=== PATIENT | female | born 1930 | race Caucasian/White ===

== ENCOUNTER 2017-06-14 19:57 | Inpatient (IN) | payer MEDICARE, MEDICAID ==
[2017-06-14] MEDS ORDERED: Sodium Chloride 0.9% 1,000 ML IV SCH (20:30)
[2017-06-14] MEDS: Sodium Chloride 0.9% 10 ML Syringe FLUSH PRN ×2 (21:14→21:57)
--- NOTE | 2017-06-14 21:27 | EDM.PDOC ---
ED HPI GENERAL MEDICAL PROBLEM - General Chief Complaint: Gastrointestinal Problem Stated Complaint: [facility] Time Seen by Provider: 06/14/17 20:09 Source of Information: Reports: Family, Old Records History Limitations: Reports: Altered Mental Status - History of Present Illness INITIAL COMMENTS - FREE TEXT/NARRATIVE: The patient presents from [facility] with blood in her stool. She had a problem with this 2 years ago and recently she has been having some dark stools and she was constipated. She was given some stool softener and a suppository a few days ago and she did have some loose stools. She did have blood in her stool tonight. She has no pain any where. She has no fever, cough, chest pain or abdominal pain. She is not vomiting. She is eating okay. The patient has dementia and she does not answer many questions but she will follow commands. Onset: Sudden Duration: Minutes: Location: Reports: Other (Bloody stool) Severity: Moderate Improves with: Reports: None Worsens with: Reports: None Associated Symptoms: Reports: No Other Symptoms - Related Data Allergies Allergy/AdvReac Type Severity Reaction Status Date / Time diphenhydramine HCl Allergy Cannot Verified 04/08/15 19:07 [From Benadryl] Remember Home Meds: Home Meds Acetaminophen [Tylenol] 2 tab PO TID 04/08/15 [History] Acetaminophen [Tylenol] 650 mg PO Q8HR PRN 04/08/15 [History] Allopurinol [Zyloprim] 100 mg PO DAILY 04/08/15 [History] Diltiazem HCl [Cardizem Cd] 120 mg PO DAILY 04/08/15 [History] Fishermans Friend Cough Drop 0.5 tab PO DAILY 04/08/15 [History] Furosemide [Lasix] 20 mg PO DAILY 04/08/15 [History] Lactose-Reduced Food [Boost] 2 oz PO BID 04/08/15 [History] Losartan [Cozaar] 25 mg PO DAILY 04/08/15 [History] Metoprolol Tartrate [Lopressor] 25 mg PO BID 04/08/15 [History] Multivit-Min/FA/Lycopene/Lut [Certavite Sr-Antioxidant Tab] 1 tab PO DAILY 04/07 [History] Potassium Chloride [Klor-Con] 20 meq PO DAILY 04/08/15 [History] Spironolactone [Aldactone] 12.5 mg PO DAILY 04/08/15 [History] atorvaSTATin [Lipitor] 20 mg PO DAILY 04/08/15 [History] Ascorbic Acid [Vitamin C] 500 mg PO DAILY 06/14/17 [History] Aspirin [Ecotrin] 81 mg PO DAILY 06/14/17 [History] Barrier Cream 1 applic TOP BID 06/14/17 [History] Bisacodyl [Dulcolax] 10 mg RC ASDIRECTED PRN 06/14/17 [History] Ferrous Sulfate 325 mg PO DAILY 06/14/17 [History] Lactose-Reduced Food [Boost] 120 ml PO ASDIRECTED 06/14/17 [History] Loperamide HCl [Imodium A-D] 2 mg PO ASDIRECTED PRN 06/14/17 [History] Megestrol [Megace] 20 mg PO DAILY 06/14/17 [History] guaiFENesin [Mucinex] 600 mg PO BID 06/14/17 [History] Past Medical History HEENT History: Reports: Hard of Hearing Other HEENT History: no hearing aides upon arrival;no glasses on arrival Cardiovascular History: Reports: Afib, CAD, Heart Failure, Hypertension Respiratory History: Reports: COPD Gastrointestinal History: Reports: Other (See Below) Other Gastrointestinal History: volvulus Genitourinary History: Reports: Other (See Below) Other Genitourinary History: pt incontinent of urine normally Musculoskeletal History: Reports: Gout, Osteoporosis Neurological History: Reports: Alzheimers Disease Psychiatric History: Reports: Alzheimers Disease, Dementia, Depression Oncologic (Cancer) History: Reports: Breast - Infectious Disease History Infectious Disease History: Reports: MRSA - Past Surgical History Female Surgical History: Reports: Breast Biopsy Social & Family History - Family History Family Medical History: Noncontributory - Tobacco Use Smoking Status *Q: Unknown Ever Smoked - Living Situation & Occupation Living situation: Reports: Extended Care Facility Occupation: Retired ED ROS GENERAL - Review of Systems Review Of Systems: See Below Constitutional: Reports: No Symptoms HEENT: Reports: No Symptoms Respiratory: Reports: No Symptoms Cardiovascular: Reports: No Symptoms Endocrine: Reports: No Symptoms GI/Abdominal: Reports: Bloody Stool. Denies: Abdominal Pain, Nausea, Vomiting : Reports: No Symptoms Musculoskeletal: Reports: No Symptoms Skin: Reports: No Symptoms Neurological: Reports: Confusion ED EXAM, GI/ABD - Physical Exam Exam: See Below Exam Limited By: Altered Mental Status (confused) General Appearance: Alert, No Apparent Distress Ears: Normal External Exam Nose: Normal Inspection Throat/Mouth: Normal Inspection Head: Atraumatic, Normocephalic Neck: Normal Inspection Respiratory/Chest: No Respiratory Distress, Lungs Clear, Normal Breath Sounds Cardiovascular: Regular Rate, Rhythm, No Edema, No Murmur GI/Abdominal Exam: Soft, Non-Tender, No Organomegaly, No Mass Rectal (Female) Exam: Bloody Stool Extremities: Normal Inspection Neurological: Alert, Oriented, No Motor/Sensory Deficits Skin Exam: Warm, Dry Course - Vital Signs Last Recorded V/S: Last Vital Signs Temp 98.4 F 06/14/17 19:59 Pulse 96 06/14/17 19:59 Resp BP 111/77 06/14/17 19:59 Pulse Ox 97 06/14/17 19:59 - Orders/Labs/Meds Orders: Active Orders 24 hr Category Date Time Status Peripheral IV Care [RC] . DIRECTED Care 06/14/17 20:20 Active Abdomen Pelvis wo Cont [CT] Stat Exams 06/14/17 20:20 Taken TYPE AND SCREEN [BBK] Stat Lab 06/14/17 20:40 Received UA W/MICROSCOPIC [URIN] Stat Lab 06/14/17 21:38 Ordered Pantoprazole [ProTONIX IV] 80 mg Med 06/14/17 21:45 Active Sodium Chloride 0.9% [Normal Saline] 100 ml IV Q10H Sodium Chloride 0.9% [Normal Saline] 1,000 ml Med 06/14/17 20:30 Active IV ASDIRECTED Sodium Chloride 0.9% [Saline Flush] Med 06/14/17 20:20 Active 10 ml FLUSH ASDIRECTED PRN Peripheral IV Insertion Adult [OM.PC] Stat Oth 06/14/17 20:20 Ordered Medication Orders Sodium Chloride (Normal Saline) 1,000 mls @ 125 mls/hr IV ASDIRECTED LATONYA Last Admin: 06/14/17 20:28 Dose: 125 mls/hr Pantoprazole Sodium 80 mg/ (Sodium Chloride) 100 mls @ 10 mls/hr IV Q10H LATONYA Sodium Chloride (Saline Flush) 10 ml FLUSH ASDIRECTED PRN PRN Reason: Keep Vein Open Last Admin: 06/14/17 21:14 Dose: 10 ml Labs: Laboratory Tests 06/14/17 06/14/17 Range/Units 20:40 20:40 WBC 6.06 (3.98-10.04) K/mm3 RBC 3.18 L (3.98-5.22) M/mm3 Hgb 10.5 L (11.2-15.7) gm/L Hct 31.7 L (34.1-44.9) % MCV 99.7 H (79.4-94.8) fl MCH 33.0 H (25.6-32.2) pg MCHC 33.1 (32.2-35.5) g/dl RDW Std Deviation 50.7 H (36.4-46.3) fL Plt Count 222 (182-369) K/mm3 MPV 9.4 (9.4-12.3) fl Neut % (Auto) 71.0 (34.0-71.1) % Lymph % (Auto) 18.3 L (19.3-51.7) % Cass % (Auto) 8.3 (4.7-12.5) % Eos % (Auto) 1.7 (0.7-5.8) Baso % (Auto) 0.5 (0.1-1.2) % Neut # (Auto) 4.31 (1.56-6.13) K/mm3 Lymph # (Auto) 1.11 L (1.18-3.74) K/mm3 Cass # (Auto) 0.50 H (0.24-0.36) K/mm3 Eos # (Auto) 0.10 (0.04-0.36) K/mm3 Baso # (Auto) 0.03 (0.01-0.08) K/mm3 Sodium 140 (136-145) mEq/L Potassium 4.1 (3.5-5.1) mEq/L Chloride 106 (98-107) mEq/L Carbon Dioxide 20 L (21-32) mEq/L Anion Gap 18.1 H (5-15) BUN 49 H (7-18) mg/dL Creatinine 1.5 H (0.55-1.02) mg/dL Est Cr Clr Drug Dosing TNP Estimated GFR (MDRD) 33 (>60) mL/min BUN/Creatinine Ratio 32.7 H (14-18) Glucose 139 H (83-115) mg/dL Calcium 8.3 L (8.5-10.1) mg/dL Total Bilirubin 0.4 (0.2-1.0) mg/dL AST 8 L (15-37) U/L ALT 19 (14-59) U/L Alkaline Phosphatase 43 L (46-116) U/L Total Protein 6.1 L (6.4-8.2) g/dl Albumin 2.9 L (3.4-5.0) g/dl Globulin 3.2 gm/dL Albumin/Globulin Ratio 0.9 L (1-2) Lipase 174 (73-393) U/L Meds: Medications Generic Name Dose Route Start Last Admin Trade Name Freq PRN Reason Stop Dose Admin Sodium Chloride 1,000 mls @ 125 mls/hr 06/14/17 20:30 06/14/17 20:28 Normal Saline IV 125 mls/hr ASDIRECTED LATONYA Administration Pantoprazole Sodium 80 mg/ 100 mls @ 10 mls/hr 06/14/17 21:45 Sodium Chloride IV Q10H LATONYA Sodium Chloride 10 ml 06/14/17 20:20 06/14/17 21:14 Saline Flush FLUSH 10 ml ASDIRECTED PRN Administration Keep Vein Open Discontinued Medications Generic Name Dose Route Start Last Admin Trade Name Freq PRN Reason Stop Dose Admin Pantoprazole Sodium 80 mg 06/14/17 21:37 Protonix Iv IVPUSH 06/14/17 21:38 .BOLUS ONE - Re-Assessments/Exams Free Text/Narrative Re-Assessment/Exam: 06/14/17 21:27 I ordered an IV NS at 125mL/hr, labs, and a CT of her abdomen and pelvis. 06/14/17 21:28 Her WBC is normal. Her Hgb is low at 10.5 but that is better from the last Hgb she had here of 9.1. Her platelets were normal at 222. Her anion gap was elevated at 18.1. Her creatinine was elevated at 1.5. Her glucose was 139. Her lipase was normal. 06/14/17 21:48 She had another bloody stool. I feel she needs to be admitted. I called Dr Phillips and she agreed to the admission. I talked to the family and at this point they did not want a colonoscopy done. Departure - Departure Time of Disposition: 22:00 Disposition: Admitted As Inpatient 65 Condition: Fair Clinical Impression: Renal insufficiency Anemia Qualifiers: Anemia type: other cause Other causes of anemia: other cause, not classified Qualified Code(s): D64.89 - Other specified anemias GI bleed Qualifiers: GI bleed type/associated pathology: unspecified gastrointestinal hemorrhage type Qualified Code(s): K92.2 - Gastrointestinal hemorrhage, unspecified - Discharge Information Referrals: Wayne Javed MD [Primary Care Provider] - Forms: ED Department Discharge - My Orders Last 24 Hours: My Active Orders 06/14/17 20:20 Peripheral IV Care [RC] . DIRECTED Abdomen Pelvis wo Cont [CT] Stat Sodium Chloride 0.9% [Saline Flush] 10 ml FLUSH ASDIRECTED PRN Peripheral IV Insertion Adult [OM.PC] Stat 06/14/17 20:30 Sodium Chloride 0.9% [Normal Saline] 1,000 ml IV ASDIRECTED 06/14/17 20:40 TYPE AND SCREEN [BBK] Stat 06/14/17 21:38 UA W/MICROSCOPIC [URIN] Stat 06/14/17 21:45 Pantoprazole [ProTONIX IV] 80 mg Sodium Chloride 0.9% [Normal Saline] 100 ml IV Q10H - Assessment/Plan Last 24 Hours: My Active Orders 06/14/17 20:20 Peripheral IV Care [RC] . DIRECTED Abdomen Pelvis wo Cont [CT] Stat Sodium Chloride 0.9% [Saline Flush] 10 ml FLUSH ASDIRECTED PRN Peripheral IV Insertion Adult [OM.PC] Stat 06/14/17 20:30 Sodium Chloride 0.9% [Normal Saline] 1,000 ml IV ASDIRECTED 06/14/17 20:40 TYPE AND SCREEN [BBK] Stat 06/14/17 21:38 UA W/MICROSCOPIC [URIN] Stat 06/14/17 21:45 Pantoprazole [ProTONIX IV] 80 mg Sodium Chloride 0.9% [Normal Saline] 100 ml IV Q10H
[2017-06-14] MEDS ORDERED: Pantoprazole 40 MG Vial IVPUSH ONE (21:37)
[2017-06-14] MEDS ORDERED: Pantoprazole 80 MG in Sodium Chloride 0.9% 100 ML IV SCH (21:45)
[2017-06-14] MEDS ORDERED: Metoprolol Tartrate 5 MG/5 ML SDV IVPUSH PRN (23:28)
[2017-06-14] MEDS ORDERED: LORazepam 2 MG/ML SDV IVPUSH PRN (23:29)
[2017-06-15] MEDS: Sodium Chloride 0.9% 1,000 ML IV SCH ×3 (04:15→17:41)
[2017-06-15] MEDS ORDERED: Acetaminophen 325 MG Tab PO PRN (06:39)
[2017-06-15] MEDS ORDERED: Bisacodyl 10 MG Supp RECTAL PRN (06:39)
[2017-06-15] MEDS ORDERED: Loperamide 2 MG Cap PO PRN (06:39)
[2017-06-15] MEDS ORDERED: Magnesium Hydroxide 400 MG/5 ML Susp 30 ML Cup PO PRN (06:52)
[2017-06-15] MEDS ORDERED: Bisacodyl 5 MG Tab PO PRN (06:52)
[2017-06-15] MEDS ORDERED: Polyethylene Glycol 3350 Powder 17 GM Packet PO PRN (06:52)
[2017-06-15] MEDS ORDERED: Docusate Sodium 100 MG Cap PO PRN (06:52)
--- NOTE | 2017-06-15 08:19 | PCM.HP ---
H&P History of Present Illness - General Date of Service: 06/15/17 Admit Problem/Dx: Admission Diagnosis/Problem Admission Diagnosis/Problem GI bleed not requiring more than 4 units of blood in 24 hours, ICU, or surgery Source of Information: Old Records, Provider History Limitations: Reports: Altered Mental Status (Dementia) - History of Present Illness Initial Comments - Free Text/Narative: This is a 86 yo female with past medical h/o bloody stool 2 years ago, breast cancer, A Fib, mild anemia, CAD, CHF, HTN, COPD, MRSA, Alzheimer's disease, depression who comes in for new onset of bloody stool. No abdominal pain, nausea , or vomiting. She is unable to answer many questions due to dementia but will follow commands. She received IV fluids and Protonix in the ED. Her initial workup in the ED showed a CBC remarkable for RBC 3.18, Hgb 10.5 (better than last visit on 04/14/15 : Hgb 9.1), HCT 31.7, MCV 99.7, MCH 33, RDW 50.7. Her chemistry is remarkable for CO2 20, anion gap 18.1, BUN 49, Cr 1.5, AST 8, Alk Phos 43. UA is not impressive for UTI. CT Abdomen and pelvis show nothing acute. Family declined colonoscopy. She is subsequently admitted to the medical floor. She is a DNR. Her PCP is Wayne Javed. - Related Data Allergies/Adverse Reactions: Allergies Allergy/AdvReac Type Severity Reaction Status Date / Time diphenhydramine HCl Allergy Cannot Verified 06/14/17 23:43 [From Benadryl] Remember Home Medications: Home Meds Acetaminophen [Tylenol] 650 mg PO Q8HR PRN 04/08/15 [History] Acetaminophen [Tylenol] 650 tab PO TID 04/08/15 [History] Allopurinol [Zyloprim] 100 mg PO DAILY 04/08/15 [History] Diltiazem HCl [Cardizem Cd] 120 mg PO DAILY 04/08/15 [History] Fishermans Friend Cough Drop 0.5 tab PO BEDTIME 04/08/15 [History] Furosemide [Lasix] 20 mg PO DAILY 04/08/15 [History] Losartan [Cozaar] 25 mg PO DAILY 04/08/15 [History] Metoprolol Tartrate [Lopressor] 25 mg PO BID 04/08/15 [History] Multivit-Min/FA/Lycopene/Lut [Certavite Sr-Antioxidant Tab] 1 tab PO DAILY 04/07 [History] Potassium Chloride [Klor-Con] 20 meq PO DAILY 04/08/15 [History] Spironolactone [Aldactone] 12.5 mg PO DAILY 04/08/15 [History] atorvaSTATin [Lipitor] 20 mg PO BEDTIME 04/08/15 [History] Ascorbic Acid [Vitamin C] 500 mg PO DAILY 06/14/17 [History] Aspirin [Ecotrin] 81 mg PO DAILY 06/14/17 [History] Bisacodyl [Dulcolax] 10 mg RECTAL DAILY PRN 06/14/17 [History] Ferrous Sulfate 325 mg PO DAILY 06/14/17 [History] Loperamide HCl [Imodium A-D] 2 mg PO ASDIRECTED PRN 06/14/17 [History] Megestrol [Megace] 800 mg PO DAILY 06/14/17 [History] guaiFENesin [Mucinex] 600 mg PO BID 06/14/17 [History] Fishermans Friend Cough Drop 0.5 tab PO QID PRN 06/15/17 [History] Past Medical History HEENT History: Reports: Cataract, Hard of Hearing Other HEENT History: no hearing aides upon arrival;no glasses on arrival Cardiovascular History: Reports: Afib, CAD, Heart Failure, Hypertension, Other ( See Below) Other Cardiovascular History: atherosclerosis, ecchymosis Respiratory History: Reports: Asthma, COPD, Other (See Below) Other Respiratory History: cough Gastrointestinal History: Reports: Chronic Constipation, Fecal Incontinence, GERD, GI Bleed, Other (See Below) Other Gastrointestinal History: volvulus; dysphagia Genitourinary History: Reports: Other (See Below) Other Genitourinary History: pt incontinent of urine normally Musculoskeletal History: Reports: Gout, Osteoporosis, Other (See Below) Other Musculoskeletal History: left hand contracture, weakness Neurological History: Reports: Alzheimers Disease, CVA Psychiatric History: Reports: Alzheimers Disease, Dementia, Depression Endocrine/Metabolic History: Reports: None Hematologic History: Reports: Anemia, B12 Deficiency Immunologic History: Reports: None Oncologic (Cancer) History: Reports: Breast Dermatologic History: Reports: None - Infectious Disease History Infectious Disease History: Reports: MRSA - Past Surgical History Female Surgical History: Reports: Breast Biopsy Social & Family History - Family History Family Medical History: Noncontributory - Tobacco Use Smoking Status *Q: Unknown Ever Smoked - Recreational Drug Use Recreational Drug Use: No - Living Situation & Occupation Living situation: Reports: Extended Care Facility Occupation: Retired H&P Review of Systems - Review of Systems: Review Of Systems: Unable To Obtain (Confused, Alzheimer's Dementia) General: Reports: No Symptoms HEENT: Reports: No Symptoms Pulmonary: Reports: No Symptoms Cardiovascular: Reports: No Symptoms Gastrointestinal: Reports: No Symptoms, Bloody Stool. Denies: Abdominal Pain Genitourinary: Reports: No Symptoms Musculoskeletal: Reports: No Symptoms Skin: Reports: No Symptoms Psychiatric: Reports: Confusion (Alzheimer's Dementia) Neurological: Reports: Confusion (Alzheimer's Dementia) Hematologic/Lymphatic: Reports: No Symptoms Immunologic: Reports: No Symptoms Exam - Exam Exam: See Below - Vital Signs Vital Signs: Last Vital Signs Temp 97.2 F 06/15/17 03:53 Pulse 92 06/15/17 03:53 Resp 20 06/15/17 03:53 BP 134/82 06/15/17 03:53 Pulse Ox 100 06/15/17 03:53 Weight: 113 lb 3.2 oz - Exam Quality Assessment: DVT Prophylaxis. No: Supplemental Oxygen, Urinary Catheter General: Alert, Cooperative, Mild Distress, Other (Confused- Alzheimer's Dementia) HEENT: Conjunctiva Clear, EACs Clear, EOMI, Hearing Intact, Mucosa Moist & [place] , Nares Patent, Normal Nasal Septum, Posterior Pharynx Clear, Pupils Equal, Pupils Reactive Neck: Supple, Trachea Midline, 2 Lungs: Clear to Auscultation, Normal Respiratory Effort Cardiovascular: Regular Rate, Irregular Rhythm (afib) GI/Abdominal Exam: Normal Bowel Sounds, Soft, Non-Tender, No Organomegaly, No Distention, No Abnormal Bruit, No Mass, Pelvis Stable (Female) Exam: Deferred Rectal (Female) Exam: Bloody Stool Back Exam: Normal Inspection, Full Range of Motion, NT Extremities: Normal Inspection, Normal Range of Motion, Non-Tender, No Pedal Edema, Normal Capillary Refill Peripheral Pulses: 1+: Posterior Tibial (L), Posterior Tibial (R), Dorsalis Pedis (L), Dorsalis Pedis (R) Skin: Warm, Dry, Intact Neurological: Cranial Nerves Intact (grossly) Neuro Extensive - Mental Status: Alert, Normal Mood/Affect, Other (Not oriented - Alzheimer's Disease) Psychiatric: Alert, Normal Affect, Normal Mood, Other (Confused) - Patient Data Lab Results Last 24 hrs: Laboratory Results - last 24 hr 06/14/17 06/14/17 06/14/17 Range/Units 20:40 20:40 20:40 WBC 6.06 (3.98-10.04) K/mm3 RBC 3.18 L (3.98-5.22) M/mm3 Hgb 10.5 L (11.2-15.7) gm/L Hct 31.7 L (34.1-44.9) % MCV 99.7 H (79.4-94.8) fl MCH 33.0 H (25.6-32.2) pg MCHC 33.1 (32.2-35.5) g/dl RDW Std Deviation 50.7 H (36.4-46.3) fL Plt Count 222 (182-369) K/mm3 MPV 9.4 (9.4-12.3) fl Neut % (Auto) 71.0 (34.0-71.1) % Lymph % (Auto) 18.3 L (19.3-51.7) % [place] % (Auto) 8.3 (4.7-12.5) % Eos % (Auto) 1.7 (0.7-5.8) Baso % (Auto) 0.5 (0.1-1.2) % Neut # (Auto) 4.31 (1.56-6.13) K/mm3 Lymph # (Auto) 1.11 L (1.18-3.74) K/mm3 [place] # (Auto) 0.50 H (0.24-0.36) K/mm3 Eos # (Auto) 0.10 (0.04-0.36) K/mm3 Baso # (Auto) 0.03 (0.01-0.08) K/mm3 Neutrophils % (Manual) (40-60) % Band Neutrophils % (0-10) % Lymphocytes % (Manual) (20-40) % Atypical Lymphs % % Immat Monocytes % (Man) Monocytes % (Manual) (2-10) % Eosinophils % (Manual) (0.7-5.8) % Basophils % (Manual) (0.1-1.2) Metamyelocytes % Myelocytes % Promyelocytes % Blast Cells % Plasma Cell % (Manual) Nucleated RBCs % Platelet Estimate Anisocytosis Elliptocytes RBC Morph Comment Sodium 140 (136-145) mEq/L Potassium 4.1 (3.5-5.1) mEq/L Chloride 106 (98-107) mEq/L Carbon Dioxide 20 L (21-32) mEq/L Anion Gap 18.1 H (5-15) BUN 49 H (7-18) mg/dL Creatinine 1.5 H (0.55-1.02) mg/dL Est Cr Clr Drug Dosing TNP Estimated GFR (MDRD) 33 (>60) mL/min BUN/Creatinine Ratio 32.7 H (14-18) Glucose 139 H (83-115) mg/dL Lactic Acid (0.4-2.0) mmol/L Calcium 8.3 L (8.5-10.1) mg/dL Magnesium (1.8-2.4) mg/dl Total Bilirubin 0.4 (0.2-1.0) mg/dL AST 8 L (15-37) U/L ALT 19 (14-59) U/L Alkaline Phosphatase 43 L (46-116) U/L C-Reactive Protein (<1.0) mg/dL Total Protein 6.1 L (6.4-8.2) g/dl Albumin 2.9 L (3.4-5.0) g/dl Globulin 3.2 gm/dL Albumin/Globulin Ratio 0.9 L (1-2) Lipase 174 (73-393) U/L Urine Color (Yellow) Urine Appearance (Clear) Urine pH (5.0-8.0) Ur Specific [place] (1.005-1.030) Urine Protein (Negative) Urine Glucose (UA) (Negative) Urine Ketones (Negative) Urine Occult Blood (Negative) Urine Nitrite (Negative) Urine Bilirubin (Negative) Urine Urobilinogen (0.2-1.0) Ur Leukocyte Esterase (Negative) Urine RBC (0-5) /hpf Urine WBC (0-5) /hpf Ur Epithelial Cells (0-5) /hpf Urine Bacteria (FEW) /hpf Hyaline Casts (0-5) /lpf Urine Mucus (FEW) /hpf Blood Type A POSITIVE Gel Antibody Screen Negative 06/14/17 06/15/17 06/15/17 Range/Units 21:30 05:52 05:52 WBC 5.90 (3.98-10.04) K/mm3 RBC 3.28 L (3.98-5.22) M/mm3 Hgb 10.6 L (11.2-15.7) gm/L Hct 32.7 L (34.1-44.9) % MCV 99.7 H (79.4-94.8) fl MCH 32.3 H (25.6-32.2) pg MCHC 32.4 (32.2-35.5) g/dl RDW Std Deviation 50.4 H (36.4-46.3) fL Plt Count 222 (182-369) K/mm3 MPV 9.3 L (9.4-12.3) fl Neut % (Auto) (34.0-71.1) % Lymph % (Auto) (19.3-51.7) % [place] % (Auto) (4.7-12.5) % Eos % (Auto) (0.7-5.8) Baso % (Auto) (0.1-1.2) % Neut # (Auto) (1.56-6.13) K/mm3 Lymph # (Auto) (1.18-3.74) K/mm3 [place] # (Auto) (0.24-0.36) K/mm3 Eos # (Auto) (0.04-0.36) K/mm3 Baso # (Auto) (0.01-0.08) K/mm3 Neutrophils % (Manual) 81 H (40-60) % Band Neutrophils % 0 (0-10) % Lymphocytes % (Manual) 19 L (20-40) % Atypical Lymphs % 0 % Immat Monocytes % (Man) 0 Monocytes % (Manual) 0 L (2-10) % Eosinophils % (Manual) 0 L (0.7-5.8) % Basophils % (Manual) 0 L (0.1-1.2) Metamyelocytes % 0 Myelocytes % 0 Promyelocytes % 0 Blast Cells % 0 Plasma Cell % (Manual) 0 Nucleated RBCs 0.0 % Platelet Estimate Adequate Anisocytosis 1+ slight Elliptocytes 1+ slight RBC Morph Comment Not Reportable Sodium 142 (136-145) mEq/L Potassium 4.2 (3.5-5.1) mEq/L Chloride 109 H (98-107) mEq/L Carbon Dioxide 19 L (21-32) mEq/L Anion Gap 18.2 H (5-15) BUN 45 H (7-18) mg/dL Creatinine 1.3 H (0.55-1.02) mg/dL Est Cr Clr Drug Dosing 24.71 Estimated GFR (MDRD) 39 (>60) mL/min BUN/Creatinine Ratio 34.6 H (14-18) Glucose 87 (83-115) mg/dL Lactic Acid (0.4-2.0) mmol/L Calcium 8.4 L (8.5-10.1) mg/dL Magnesium 1.9 (1.8-2.4) mg/dl Total Bilirubin (0.2-1.0) mg/dL AST (15-37) U/L ALT (14-59) U/L Alkaline Phosphatase (46-116) U/L C-Reactive Protein 0.2 (<1.0) mg/dL Total Protein (6.4-8.2) g/dl Albumin (3.4-5.0) g/dl Globulin gm/dL Albumin/Globulin Ratio (1-2) Lipase (73-393) U/L Urine Color Yellow (Yellow) Urine Appearance Cloudy H (Clear) Urine pH 5.0 (5.0-8.0) Ur Specific [place] 1.015 (1.005-1.030) Urine Protein Negative (Negative) Urine Glucose (UA) Negative (Negative) Urine Ketones Negative (Negative) Urine Occult Blood Negative (Negative) Urine Nitrite Negative (Negative) Urine Bilirubin Negative (Negative) Urine Urobilinogen 0.2 (0.2-1.0) Ur Leukocyte Esterase 1+ H (Negative) Urine RBC Not seen (0-5) /hpf Urine WBC 5-10 H (0-5) /hpf Ur Epithelial Cells 5-10 H (0-5) /hpf Urine Bacteria Many H (FEW) /hpf Hyaline Casts 0-5 (0-5) /lpf Urine Mucus Not seen (FEW) /hpf Blood Type Gel Antibody Screen 06/15/17 Range/Units 05:52 WBC (3.98-10.04) K/mm3 RBC (3.98-5.22) M/mm3 Hgb (11.2-15.7) gm/L Hct (34.1-44.9) % MCV (79.4-94.8) fl MCH (25.6-32.2) pg MCHC (32.2-35.5) g/dl RDW Std Deviation (36.4-46.3) fL Plt Count (182-369) K/mm3 MPV (9.4-12.3) fl Neut % (Auto) (34.0-71.1) % Lymph % (Auto) (19.3-51.7) % [place] % (Auto) (4.7-12.5) % Eos % (Auto) (0.7-5.8) Baso % (Auto) (0.1-1.2) % Neut # (Auto) (1.56-6.13) K/mm3 Lymph # (Auto) (1.18-3.74) K/mm3 [place] # (Auto) (0.24-0.36) K/mm3 Eos # (Auto) (0.04-0.36) K/mm3 Baso # (Auto) (0.01-0.08) K/mm3 Neutrophils % (Manual) (40-60) % Band Neutrophils % (0-10) % Lymphocytes % (Manual) (20-40) % Atypical Lymphs % % Immat Monocytes % (Man) Monocytes % (Manual) (2-10) % Eosinophils % (Manual) (0.7-5.8) % Basophils % (Manual) (0.1-1.2) Metamyelocytes % Myelocytes % Promyelocytes % Blast Cells % Plasma Cell % (Manual) Nucleated RBCs % Platelet Estimate Anisocytosis Elliptocytes RBC Morph Comment Sodium (136-145) mEq/L Potassium (3.5-5.1) mEq/L Chloride (98-107) mEq/L Carbon Dioxide (21-32) mEq/L Anion Gap (5-15) BUN (7-18) mg/dL Creatinine (0.55-1.02) mg/dL Est Cr Clr Drug Dosing Estimated GFR (MDRD) (>60) mL/min BUN/Creatinine Ratio (14-18) Glucose (83-115) mg/dL Lactic Acid 1.5 (0.4-2.0) mmol/L Calcium (8.5-10.1) mg/dL Magnesium (1.8-2.4) mg/dl Total Bilirubin (0.2-1.0) mg/dL AST (15-37) U/L ALT (14-59) U/L Alkaline Phosphatase (46-116) U/L C-Reactive Protein (<1.0) mg/dL Total Protein (6.4-8.2) g/dl Albumin (3.4-5.0) g/dl Globulin gm/dL Albumin/Globulin Ratio (1-2) Lipase (73-393) U/L Urine Color (Yellow) Urine Appearance (Clear) Urine pH (5.0-8.0) Ur Specific [place] (1.005-1.030) Urine Protein (Negative) Urine Glucose (UA) (Negative) Urine Ketones (Negative) Urine Occult Blood (Negative) Urine Nitrite (Negative) Urine Bilirubin (Negative) Urine Urobilinogen (0.2-1.0) Ur Leukocyte Esterase (Negative) Urine RBC (0-5) /hpf Urine WBC (0-5) /hpf Ur Epithelial Cells (0-5) /hpf Urine Bacteria (FEW) /hpf Hyaline Casts (0-5) /lpf Urine Mucus (FEW) /hpf Blood Type Gel Antibody Screen Result Diagrams: 06/15/17 05:52 06/15/17 05:52 - Problem List (1) GI bleed SNOMED Code(s): 56429132 ICD Code: K92.2 - GASTROINTESTINAL HEMORRHAGE, UNSPECIFIED Status: Acute Priority: High Current Visit: Yes Qualifiers: GI bleed type/associated pathology: unspecified gastrointestinal hemorrhage type Qualified Code(s): K92.2 - Gastrointestinal hemorrhage, unspecified (2) Alzheimer disease SNOMED Code(s): 61577359 ICD Code: G30.9 - ALZHEIMER'S DISEASE, UNSPECIFIED; F02.80 - DEMENTIA IN OTH DISEASES CLASSD ELSWHR W/O BEHAVRL DISTURB Status: Chronic Priority: Medium Current Visit: Yes Qualifiers: Alzheimer's disease onset: unspecified onset Dementia behavioral disturbance: without behavioral disturbance Qualified Code(s): G30.9 - Alzheimer's disease, unspecified; F02.80 - Dementia in other diseases classified elsewhere without behavioral disturbance (3) CAD (coronary artery disease) SNOMED Code(s): 98062198 ICD Code: I25.10 - ATHSCL HEART DISEASE OF [place] CORONARY ARTERY W/O ANG PCTRS Status: Chronic Priority: Low Current Visit: Yes Qualifiers: Coronary Disease-Associated Artery/Lesion type: unspecified vessel or lesion type [place] vs. transplanted heart: [place] heart Associated angina: angina presence unspecified Qualified Code(s): I25.10 - Atherosclerotic heart disease of [place] coronary artery without angina pectoris (4) Heart failure SNOMED Code(s): 19904748 ICD Code: I50.9 - HEART FAILURE, UNSPECIFIED Status: Chronic Priority: Medium Current Visit: Yes Qualifiers: Heart failure type: unspecified Heart failure chronicity: unspecified Qualified Code(s): I50.9 - Heart failure, unspecified (5) HTN (hypertension) SNOMED Code(s): 59046225 ICD Code: I10 - ESSENTIAL (PRIMARY) HYPERTENSION Status: Chronic Priority : Medium Current Visit: Yes Qualifiers: Hypertension type: unspecified Qualified Code(s): I10 - Essential (primary ) hypertension (6) COPD (chronic obstructive pulmonary disease) SNOMED Code(s): 11027759 ICD Code: J44.9 - CHRONIC OBSTRUCTIVE PULMONARY DISEASE, UNSPECIFIED Status : Chronic Priority: Medium Current Visit: Yes Qualifiers: COPD type: unspecified COPD Qualified Code(s): J44.9 - Chronic obstructive pulmonary disease, unspecified (7) Osteoarthritis SNOMED Code(s): 034840121 ICD Code: M19.90 - UNSPECIFIED OSTEOARTHRITIS, UNSPECIFIED SITE Status: Chronic Priority: Low Current Visit: Yes Qualifiers: Osteoarthritis location: unspecified site Osteoarthritis type: unspecified Qualified Code(s): M19.90 - Unspecified osteoarthritis, unspecified site (8) Other specified depressive episodes SNOMED Code(s): 72295094 ICD Code: F32.89 - OTHER SPECIFIED DEPRESSIVE EPISODES Status: Chronic Priority: Low Current Visit: No (9) Breast cancer SNOMED Code(s): 441119649 ICD Code: C50.919 - MALIGNANT NEOPLASM OF UNSP SITE OF UNSPECIFIED FEMALE BREAST Status: Chronic Priority: Low Current Visit: No Qualifiers: Breast location: unspecified site of breast Estrogen receptor status: unspecified Patient sex: female Laterality: unspecified laterality Qualified Code(s): C50.919 - Malignant neoplasm of unspecified site of unspecified female breast (10) Renal insufficiency SNOMED Code(s): 129959555, 319958045 ICD Code: N28.9 - DISORDER OF KIDNEY AND URETER, UNSPECIFIED Status: Chronic Priority: Medium Current Visit: Yes Onset Date: 04/09/15 Problem Details: (11) Atrial fibrillation SNOMED Code(s): 40671142 ICD Code: I48.91 - UNSPECIFIED ATRIAL FIBRILLATION Status: Chronic Priority: Medium Current Visit: Yes Onset Date: 04/09/15 Qualifiers: Atrial fibrillation type: chronic Qualified Code(s): I48.2 - Chronic atrial fibrillation (12) Anemia SNOMED Code(s): 149403672 ICD Code: D64.9 - ANEMIA, UNSPECIFIED Status: Chronic Priority: Medium Current Visit: Yes Onset Date: 04/09/15 Problem Details: Qualifiers: Anemia type: other cause Other causes of anemia: other cause, not classified Qualified Code(s): D64.89 - Other specified anemias Problem List Initiated/Reviewed/Updated: Yes Orders Last 24hrs: Active Orders 24 hr Category Date Time Status Patient Status [ADT] Routine ADT 06/14/17 22:04 Active Bedrest Bathroom Privileges [RC] ASDIRECTED Care 06/15/17 06:52 Active Bedrest Bedside Commode [RC] ASDIRECTED Care 06/15/17 06:52 Active Cardiac Monitoring [RC] INTERMITTENT Care 06/15/17 06:54 Inactive Height and Weight [RC] 04 Care 06/15/17 06:52 Active Intake and Output [RC] QSHIFT Care 06/15/17 06:53 Active Notify Provider Consults [RC] ASDIRECTED Care 06/15/17 07:10 Active Oxygen Therapy [RC] PRN Care 06/15/17 06:53 Active Pulse Oximetry [RC] PRN Care 06/15/17 06:54 Active VTE/DVT Education [RC] PER UNIT ROUTINE Care 06/15/17 06:53 Active Vital Signs [RC] Q4HR Care 06/15/17 06:53 Active Consult to Physician [CONS] Routine Cons 06/15/17 07:09 Active Consult to Assistant Shift Supervisor [CONS] Routine Cons 06/15/17 07:11 Active OT Evaluation and Treatment [CONS] Routine Cons 06/15/17 06:52 Active PT Evaluation and Treatment [CONS] Routine Cons 06/15/17 06:52 Active NPO [Nothing Per Oral Diet] [DIET] Diet 06/15/17 Breakfast Active Abdomen Pelvis wo Cont [CT] Stat Exams 06/14/17 20:20 Taken C-REACTIVE PROTEIN [CHEM] AM Lab 06/16/17 05:11 Ordered C-REACTIVE PROTEIN [CHEM] AM Lab 06/17/17 05:11 Ordered C-REACTIVE PROTEIN [CHEM] AM Lab 06/18/17 05:11 Ordered C-REACTIVE PROTEIN [CHEM] AM Lab 06/19/17 05:11 Ordered C-REACTIVE PROTEIN [CHEM] AM Lab 06/20/17 05:11 Ordered C-REACTIVE PROTEIN [CHEM] AM Lab 06/21/17 05:11 Ordered CBC WITH AUTO DIFF [HEME] AM Lab 06/16/17 05:11 Ordered CBC WITH AUTO DIFF [HEME] AM Lab 06/17/17 05:11 Ordered CBC WITH AUTO DIFF [HEME] AM Lab 06/18/17 05:11 Ordered CBC WITH AUTO DIFF [HEME] AM Lab 06/19/17 05:11 Ordered CBC WITH AUTO DIFF [HEME] AM Lab 06/20/17 05:11 Ordered CBC WITH AUTO DIFF [HEME] AM Lab 06/21/17 05:11 Ordered COMPREHENSIVE METABOLIC PN,CMP [CHEM] AM Lab 06/16/17 05:11 Ordered COMPREHENSIVE METABOLIC PN,CMP [CHEM] AM Lab 06/17/17 05:11 Ordered COMPREHENSIVE METABOLIC PN,CMP [CHEM] AM Lab 06/18/17 05:11 Ordered COMPREHENSIVE METABOLIC PN,CMP [CHEM] AM Lab 06/19/17 05:11 Ordered COMPREHENSIVE METABOLIC PN,CMP [CHEM] AM Lab 06/20/17 05:11 Ordered COMPREHENSIVE METABOLIC PN,CMP [CHEM] AM Lab 06/21/17 05:11 Ordered LACTIC ACID [CHEM] AM Lab 06/16/17 05:11 Ordered LACTIC ACID [CHEM] AM Lab 06/17/17 05:11 Ordered LACTIC ACID [CHEM] AM Lab 06/18/17 05:11 Ordered LACTIC ACID [CHEM] AM Lab 06/19/17 05:11 Ordered LACTIC ACID [CHEM] AM Lab 06/20/17 05:11 Ordered LACTIC ACID [CHEM] AM Lab 06/21/17 05:11 Ordered MAGNESIUM [CHEM] AM Lab 06/16/17 05:11 Ordered MAGNESIUM [CHEM] AM Lab 06/17/17 05:11 Ordered MAGNESIUM [CHEM] AM Lab 06/18/17 05:11 Ordered MAGNESIUM [CHEM] AM Lab 06/19/17 05:11 Ordered MAGNESIUM [CHEM] AM Lab 06/20/17 05:11 Ordered MAGNESIUM [CHEM] AM Lab 06/21/17 05:11 Ordered UA W/MICROSCOPIC [URIN] Stat Lab 06/14/17 21:30 Ordered Acetaminophen [Tylenol] Med 06/15/17 06:39 Active 650 mg PO Q8HR PRN Acetaminophen [Tylenol] Med 06/15/17 09:00 Active 650 mg PO TID Allopurinol [Zyloprim] Med 06/15/17 09:00 Active 100 mg PO DAILY Bisacodyl [Dulcolax] Med 06/15/17 06:39 Active 10 mg RECTAL DAILY PRN Diltiazem [Cardizem CD] Med 06/15/17 09:00 Active 120 mg PO DAILY Docusate Sodium [Colace] Med 06/15/17 06:52 Active 100 mg PO BID PRN Docusate Sodium/Sennosides [Senna Plus] Med 06/15/17 06:52 Active 1 tab PO BID PRN Ferrous Sulfate Med 06/15/17 09:00 Active 325 mg PO DAILY Furosemide [Lasix] Med 06/15/17 09:00 Active 20 mg PO DAILY LORazepam [Ativan] Med 06/14/17 23:29 Active 0.5 mg IVPUSH BEDTIME PRN Loperamide [Imodium] Med 06/15/17 06:39 Active 2 mg PO ASDIRECTED PRN Losartan [Cozaar] Med 06/15/17 09:00 Active 25 mg PO DAILY Magnesium Hydroxide [Milk of Magnesia] Med 06/15/17 06:52 Active 30 ml PO Q12H PRN Megestrol [Megace 40 MG/ML Susp] Med 06/15/17 09:00 Active 800 mg PO DAILY Metoprolol Tartrate [Lopressor] Med 06/15/17 09:00 Active 25 mg PO BID Metoprolol Tartrate [Lopressor] Med 06/14/17 23:28 Active 5 mg IVPUSH Q6H PRN Multivitamins,Therapeutic [Thera] Med 06/15/17 09:00 Active 1 each PO DAILY Pantoprazole [ProTONIX IV] Med 06/15/17 09:00 Active 40 mg IVPUSH Q12H Polyethylene Glycol 3350 [MiraLAX] Med 06/15/17 06:52 Active 17 gm PO DAILY PRN Potassium Chloride [Klor-Con M20] Med 06/15/17 09:00 Active 20 meq PO DAILY Simvastatin [Zocor] Med 06/15/17 21:00 Active 20 mg PO BEDTIME Sodium Chloride 0.9% [Normal Saline] 1,000 ml Med 06/14/17 23:45 Active IV ASDIRECTED Sodium Chloride 0.9% [Saline Flush] Med 06/14/17 20:20 Active 10 ml FLUSH ASDIRECTED PRN Spironolactone [Aldactone] Med 06/15/17 09:00 Active 12.5 mg PO DAILY Peripheral IV Insertion Adult [OM.PC] Stat Oth 06/14/17 20:20 Ordered TANMAY Hose [Antiembolic Hose] [OM.PC] Routine Oth 06/14/17 23:29 Ordered Code Status [Resuscitation Status] Routine Resus Stat 06/14/17 23:32 Ordered Medication Orders Acetaminophen (Tylenol) 650 mg PO Q8HR PRN PRN Reason: Pain/Fever Acetaminophen (Tylenol) 650 mg PO TID LATONYA Allopurinol (Zyloprim) 100 mg PO DAILY LATONYA Bisacodyl (Dulcolax) 10 mg RECTAL DAILY PRN PRN Reason: Constipation Diltiazem HCl (Cardizem Cd) 120 mg PO DAILY LATONYA Docusate Sodium (Colace) 100 mg PO BID PRN PRN Reason: Constipation Ferrous Sulfate (Ferrous Sulfate) 325 mg PO DAILY LATONYA Furosemide (Lasix) 20 mg PO DAILY [facility] Sodium Chloride (Normal Saline) 1,000 mls @ 150 mls/hr IV ASDIRECTED [facility] Last Admin: 06/15/17 04:15 Dose: 150 mls/hr Loperamide HCl (Imodium) 2 mg PO ASDIRECTED PRN PRN Reason: Diarrhea Lorazepam (Ativan) 0.5 mg IVPUSH BEDTIME PRN PRN Reason: Insomnia Losartan Potassium (Cozaar) 25 mg PO DAILY [facility] Magnesium Hydroxide (Milk Of Magnesia) 30 ml PO Q12H PRN PRN Reason: Constipation Megestrol Acetate (Megace 40 Mg/Ml Susp) 800 mg PO DAILY [facility] Metoprolol Tartrate (Lopressor) 5 mg IVPUSH Q6H PRN PRN Reason: Tachycardia Metoprolol Tartrate (Lopressor) 25 mg PO BID [facility] Multivitamins (Thera) 1 each PO DAILY [facility] Pantoprazole Sodium (Protonix Iv) 40 mg IVPUSH Q12H [facility] Polyethylene Glycol (Miralax) 17 gm PO DAILY PRN PRN Reason: Constipation Potassium Chloride (Klor-Con M20) 20 meq PO DAILY [facility] Senna/Docusate Sodium (Senna Plus) 1 tab PO BID PRN PRN Reason: Constipation Simvastatin (Zocor) 20 mg PO BEDTIME [facility] Sodium Chloride (Saline Flush) 10 ml FLUSH ASDIRECTED PRN PRN Reason: Keep Vein Open Last Admin: 06/14/17 21:57 Dose: 10 ml Admin: 06/14/17 21:14 Dose: 10 ml Spironolactone (Aldactone) 12.5 mg PO DAILY [facility] Assessment/Plan Comment:: I/P: Acute: GI Bleed -Risk factor: h/o bloody stools 2 years ago--> No colonoscopy done, family declined -Bloody dark stools with constipation per [facility], Bloody stool in ED -RBC 3.18-->3.28, Hgb 10.5-->10.6, Hct 31.7-->32.7 -Discussed case with General Surgeon Dr. Elizabeth -He will call Daughter/POA, Maribel, to answer questions and give recommendations regarding colonoscopy,etc. -Maribel -Goal at this time is supportive care unless family decides to pursue further evaluations -Pt is DNR- discussed making pt comfort measures with Maribel; she will let us know if changes -Hold at home ASA for now -NPO--> soft diet -INR, PT, PTT ordered -IVF Mild Anemia, acute on chronic -RBC 3.18-->3.28, Hgb 10.5-->10.6, Hct 31.7-->32.7 -Monitor -Replenish with PRBCs as needed Chronic: Alzheimer's disease -Confused and disoriented -Unable to answer questions, but will follow commands A Fib -[id number] Score: 7 points; Mod-High Risk: 11.2% stroke risk per year -On Diltiazem and ASA 81mg-->Hold ASA for now -h/o of Warfarin but no longer on due to GI bleeds per daughter -Discussed the pros and cons of anticoagulation with daughter, she would like to keep on ASA only HTN -On Lopressor 25 BID, Aldactone 12.5mg Q Daily, Losartan 25 Q Daily -Monitor CKD III--> eGFR 39, Cr 1.3, BUN 45 h/o UTI--> U/A not impressive for UTI, Urine culture ordered CAD COPD CHF--> On Lasix 20mg Q Daily h/o MRSA Breast cancer Osteoporosis Depression Gout-->On Allopurinol Plan: Transfered to Med-Surg today She remains stable Other orders as indicated above Home meds as indicated Routine AM labs PT/OT-->canceled due to AMS and per PT/OT uses Cindy lift at [facility]/ for discharge planning GI Prophylaxis: Protonix DVT Prophylaxis: TANMAY brown Code Status: DNR; PCP: Wayne Javed Most likely D/C tomorrow pending family decision for further evaluation and clinical disposition.
[2017-06-15] MEDS: Pantoprazole 40 MG Vial IVPUSH SCH ×2 (08:44→20:18)
[2017-06-15] MEDS: Metoprolol Tartrate 25 MG Tab PO SCH ×2 (08:44→20:17)
[2017-06-15] MEDS: Megestrol Susp 40 MG/ML 10 ML UD Cup PO SCH (08:44)
[2017-06-15] MEDS: Ferrous Sulfate 325 MG Tab PO SCH (08:44)
[2017-06-15] MEDS: Losartan 25 MG Tab PO SCH (08:45)
[2017-06-15] MEDS: Multivitamins,Therapeutic Tab PO SCH (08:45)
[2017-06-15] MEDS: Diltiazem 120 MG Cap.CD PO SCH (08:45)
[2017-06-15] MEDS: Potassium Chloride 20 MEQ Tab.ER PO SCH (08:45)
[2017-06-15] MEDS: Allopurinol 100 MG Tab PO SCH (08:45)
[2017-06-15] MEDS: Furosemide 20 MG Tab PO SCH (08:46)
[2017-06-15] MEDS: Spironolactone 25 MG Tab PO SCH (08:46)
[2017-06-15] MEDS: Acetaminophen 325 MG Tab PO SCH ×3 (08:46→20:16)
--- NOTE | 2017-06-15 10:19 | CT ---
CT abdomen and pelvis Technique: Multiple axial sections were obtained from above the dome of the diaphragm inferiorly through the pubic symphysis. Intravenous and oral contrast was not utilized. Comparison: No prior abdominal or pelvic CT exam. Findings: Visualized lung bases show nothing acute. Noncontrast appearance of the liver appears within normal limits. Diffuse coronary artery calcification is seen. Minimal pericardial effusion is seen. Heart is enlarged. Spleen is normal. Adrenal glands show no nodule. Kidneys show no hydronephrosis. Small cortical cysts are seen within both kidneys. Pancreas is within normal limits. Aorta shows areas of ectasia with maximum AP dimension 2.0 cm. Atherosclerotic change is noted within the aorta and within the iliac vessels. No retroperitoneal adenopathy or mesenteric abnormalities are seen. Numerous sigmoid diverticuli are seen with no pelvic mass or adenopathy being seen. Small fat-containing umbilical hernia is noted. Diffuse degenerative change is noted throughout the spine. Impression: 1. Incidental findings. Nothing acute is appreciated on CT study of the abdomen and pelvis. Diagnostic code #2 I agree with preliminary report from [facility], finalized at 06/14/17, 10:14 PM Central Time
[2017-06-15] MEDS ORDERED: Simvastatin 20 MG Tab PO SCH (21:00)
[2017-06-16] MEDS: Sodium Chloride 0.9% 1,000 ML IV SCH ×2 (00:22→07:05)
[2017-06-16] MEDS ORDERED: Magnesium Sulfate/Water 2 GM in Premix Bag 1 BAG IV ONE (08:16)
[2017-06-16] MEDS ORDERED: Magnesium Oxide 400 MG Tab PO ONE ×2 (09:31→14:00)
[2017-06-16] MEDS: Multivitamins,Therapeutic Tab PO SCH (09:53)
[2017-06-16] MEDS: Pantoprazole 40 MG Vial IVPUSH SCH (09:53)
[2017-06-16] MEDS: Megestrol Susp 40 MG/ML 10 ML UD Cup PO SCH (09:53)
[2017-06-16] MEDS: Metoprolol Tartrate 25 MG Tab PO SCH (09:53)
[2017-06-16] MEDS: Acetaminophen 325 MG Tab PO SCH ×2 (09:55→14:07)
[2017-06-16] MEDS: Spironolactone 25 MG Tab PO SCH (09:59)
[2017-06-16] MEDS: Diltiazem 120 MG Cap.CD PO SCH (09:59)
[2017-06-16] MEDS: Losartan 25 MG Tab PO SCH (10:00)
[2017-06-16] MEDS: Ferrous Sulfate 325 MG Tab PO SCH (10:00)
[2017-06-16] MEDS: Allopurinol 100 MG Tab PO SCH (10:00)
[2017-06-16] MEDS: Furosemide 20 MG Tab PO SCH (10:00)
[2017-06-16] MEDS: Potassium Chloride 20 MEQ Tab.ER PO SCH (10:01)
--- NOTE | 2017-06-16 14:20 | PCM.DCSUM1 ---
Discharge Summary - Hospital Course HPI Initial Comments: The patient presents from [facility] with blood in her stool. She had a problem with this 2 years ago and recently she has been having some dark stools and she was constipated. She was given some stool softener and a suppository a few days ago and she did have some loose stools. She did have blood in her stool tonight. She has no pain any where. She has no fever, cough, chest pain or abdominal pain. She is not vomiting. She is eating okay. The patient has dementia and she does not answer many questions but she will follow commands. - Discharge Data Discharge Date: 06/16/17 (ADMIT 06/14/17) Discharge Disposition: DC/Tfer to SNF 03 Condition: Good - Discharge Diagnosis/Problem(s) (1) GI bleed SNOMED Code(s): 33759342 ICD Code: K92.2 - GASTROINTESTINAL HEMORRHAGE, UNSPECIFIED Status: Acute Priority: High Current Visit: Yes Qualifiers: GI bleed type/associated pathology: unspecified gastrointestinal hemorrhage type Qualified Code(s): K92.2 - Gastrointestinal hemorrhage, unspecified (2) Alzheimer disease SNOMED Code(s): 49703676 ICD Code: G30.9 - ALZHEIMER'S DISEASE, UNSPECIFIED; F02.80 - DEMENTIA IN OTH DISEASES CLASSD ELSWHR W/O BEHAVRL DISTURB Status: Chronic Priority: Medium Current Visit: Yes Qualifiers: Alzheimer's disease onset: unspecified onset Dementia behavioral disturbance: without behavioral disturbance Qualified Code(s): G30.9 - Alzheimer's disease, unspecified; F02.80 - Dementia in other diseases classified elsewhere without behavioral disturbance (3) CAD (coronary artery disease) SNOMED Code(s): 33217613 ICD Code: I25.10 - ATHSCL HEART DISEASE OF [place] CORONARY ARTERY W/O ANG PCTRS Status: Chronic Priority: Low Current Visit: Yes Qualifiers: Coronary Disease-Associated Artery/Lesion type: unspecified vessel or lesion type [place] vs. transplanted heart: [place] heart Associated angina: angina presence unspecified Qualified Code(s): I25.10 - Atherosclerotic heart disease of [place] coronary artery without angina pectoris (4) Heart failure SNOMED Code(s): 22732228 ICD Code: I50.9 - HEART FAILURE, UNSPECIFIED Status: Chronic Priority: Medium Current Visit: Yes Qualifiers: Heart failure type: unspecified Heart failure chronicity: unspecified Qualified Code(s): I50.9 - Heart failure, unspecified (5) HTN (hypertension) SNOMED Code(s): 98532518 ICD Code: I10 - ESSENTIAL (PRIMARY) HYPERTENSION Status: Chronic Priority : Medium Current Visit: Yes Qualifiers: Hypertension type: unspecified Qualified Code(s): I10 - Essential (primary ) hypertension (6) COPD (chronic obstructive pulmonary disease) SNOMED Code(s): 23349165 ICD Code: J44.9 - CHRONIC OBSTRUCTIVE PULMONARY DISEASE, UNSPECIFIED Status : Chronic Priority: Medium Current Visit: Yes Qualifiers: COPD type: unspecified COPD Qualified Code(s): J44.9 - Chronic obstructive pulmonary disease, unspecified (7) Osteoarthritis SNOMED Code(s): 785462831 ICD Code: M19.90 - UNSPECIFIED OSTEOARTHRITIS, UNSPECIFIED SITE Status: Chronic Priority: Low Current Visit: Yes Qualifiers: Osteoarthritis location: unspecified site Osteoarthritis type: unspecified Qualified Code(s): M19.90 - Unspecified osteoarthritis, unspecified site (8) Other specified depressive episodes SNOMED Code(s): 01785507 ICD Code: F32.89 - OTHER SPECIFIED DEPRESSIVE EPISODES Status: Chronic Priority: Low Current Visit: No (9) Breast cancer SNOMED Code(s): 849148287 ICD Code: C50.919 - MALIGNANT NEOPLASM OF UNSP SITE OF UNSPECIFIED FEMALE BREAST Status: Chronic Priority: Low Current Visit: No Qualifiers: Breast location: unspecified site of breast Estrogen receptor status: unspecified Patient sex: female Laterality: unspecified laterality Qualified Code(s): C50.919 - Malignant neoplasm of unspecified site of unspecified female breast (10) Renal insufficiency SNOMED Code(s): 490933398, 844609187 ICD Code: N28.9 - DISORDER OF KIDNEY AND URETER, UNSPECIFIED Status: Chronic Priority: Medium Current Visit: Yes Onset Date: 04/09/15 Problem Details: (11) Atrial fibrillation SNOMED Code(s): 19546915 ICD Code: I48.91 - UNSPECIFIED ATRIAL FIBRILLATION Status: Chronic Priority: Medium Current Visit: Yes Onset Date: 04/09/15 Qualifiers: Atrial fibrillation type: chronic Qualified Code(s): I48.2 - Chronic atrial fibrillation (12) Anemia SNOMED Code(s): 626257511 ICD Code: D64.9 - ANEMIA, UNSPECIFIED Status: Chronic Priority: Medium Current Visit: Yes Onset Date: 04/09/15 Problem Details: Qualifiers: Anemia type: other cause Other causes of anemia: other cause, not classified Qualified Code(s): D64.89 - Other specified anemias (13) UTI (urinary tract infection) SNOMED Code(s): 61414529 ICD Code: N39.0 - URINARY TRACT INFECTION, SITE NOT SPECIFIED Status: Acute Priority: High Current Visit: Yes Onset Date: 04/09/15 Problem Details: - Gram negative rods - 2g IV Rocephin given - D/C with Keflex 500 BID x7 days Qualifiers: Urinary tract infection type: site unspecified Hematuria presence: without hematuria Qualified Code(s): N39.0 - Urinary tract infection, site not specified - Patient Summary/Data Operative Procedure(s) Performed: none Complications: none Consults: Consultations 06/15/17 07:11 Consult to [employer] [CONS] Routine Labs Pending at D/C: Urine culture, preliminary shows gram negative rods Recommended Follow-up Testing/Procedures: Follow up with PCP in 7-10 days. Planned Operative Procedure(s) after DC: none Hospital Course: I/P: Acute: Mild UTI -No hematuria -Due to dementia unable to communicate if clinical symptoms -U/A ordered in ED not impressive for UTI -Urine culture--> Gram negative rods, 50-60k -2g IV Rocephin -Keflex 500 BID x7 days given at discharge Mild Anemia, acute on chronic -RBC 3.18-->3.28-->3.05, Hgb 10.5-->10.6-->9.9, Hct 31.7-->32.7-->30.7 -Monitor -Replenish with PRBCs as needed Resolved: GI Bleed, Resolved -Risk factor: h/o bloody stools 2 years ago--> No colonoscopy done, family declined -Bloody dark stools with constipation per [facility], Bloody stool in ED -Abdominal and Pelvis CT ordered in ED--> no acute findings -RBC 3.18-->3.28-->3.05, Hgb 10.5-->10.6-->9.9, Hct 31.7-->32.7-->30.7 -Discussed case with General Surgeon Dr. Elizabeth -He will call Daughter/POA, Maribel, to answer questions and give recommendations regarding colonoscopy,etc. -Maribel -Goal at this time is supportive care unless family decides to pursue further evaluations -Pt is DNR--> now comfort measures per daughter/POJania López -Hold at home ASA for now--> Restart at home -NPO--> soft diet -Coagulation studies within normal limits-->PT 11.2, INR 1.03 -IVF--> D/C, home today Chronic: Alzheimer's disease -Confused and disoriented -Unable to answer questions, but will follow commands A Fib -[id number] Score: 7 points; Mod-High Risk: 11.2% stroke risk per year -On Diltiazem and ASA 81mg-->Hold ASA for now--> Restart ASA at home -h/o of Warfarin but no longer on due to GI bleeds per daughter -Discussed the pros and cons of anticoagulation with daughter, she would like to keep on ASA only HTN -On Lopressor 25 BID, Aldactone 12.5mg Q Daily, Losartan 25 Q Daily -Monitor CKD III--> eGFR 47, Cr 1.1, BUN 32 CAD COPD CHF--> On Lasix 20mg Q Daily h/o MRSA Breast cancer Osteoporosis Depression Gout-->On Allopurinol GERD--> Start on Omeprazole 20mg at home Plan: Transfered to Med-Surg She remains stable and improving clinically Other orders as indicated above Home meds as indicated Routine AM labs PT/OT-->canceled due to AMS and per PT/OT uses Cindy lift at [facility]/ for discharge planning GI Prophylaxis: Protonix DVT Prophylaxis: TANMAY brown Code Status: DNR/DNI/Comfort measures per Daughter/AVERY López; PCP: Wayne Javed D/C back to [facility] today Shahrzad has recovered quite well after coming in for GI bleed. She had multiple tests done. She was found to have bloody stools with mild anemia as well as a mild UTI with gram negative rods. Abdominal and pelvis CT was negative. The bloody stools have since resolved. Family declined colonoscopy and discussed all options with general surgeon Dr. Elizabeth and decided on supportive care only. Her CODE STATUS has been changed by her daughter/POA, Maribel, to comfort measures. She should follow-up with her primary care provider in 7-10 days. She was discharged home with Keflex 500 twice a day 7 days for UTI as well as a prescription for Omeprazole 20mg Q daily x30 for GERD. She should follow up with her PCP for further prescription of Omeprazole. Her Hgb was 9.9 and should be rechecked with her primary care provider. This can be worked up further by her PCP. She will be discharged to [facility] today. - Patient Instructions Diet: Pureed (NDD Level 1 Pureed, Harris Thickened Liquids) Activity: As Tolerated, Bedrest Driving: Do Not Drive Showering/Bathing: May Shower Notify Provider of: Fever, Increased Pain, Nausea and/or Vomiting Other/Special Instructions: Return to ED if GI bleeding worsens - Discharge Plan Prescriptions/Med Rec: Cephalexin [Keflex] 500 mg PO BID #14 cap Saccharomyces Boulardii [Florastor] 250 mg PO BID #28 cap Home Medications: Home Meds Acetaminophen [Tylenol] 650 mg PO Q8HR PRN 04/08/15 [History] Acetaminophen [Tylenol] 650 tab PO TID 04/08/15 [History] Allopurinol [Zyloprim] 100 mg PO DAILY 04/08/15 [History] Diltiazem HCl [Cardizem Cd] 120 mg PO DAILY 04/08/15 [History] Fishermans Friend Cough Drop 0.5 tab PO BEDTIME 04/08/15 [History] Furosemide [Lasix] 20 mg PO DAILY 04/08/15 [History] Losartan [Cozaar] 25 mg PO DAILY 04/08/15 [History] Metoprolol Tartrate [Lopressor] 25 mg PO BID 04/08/15 [History] Multivit-Min/FA/Lycopene/Lut [Certavite Sr-Antioxidant Tab] 1 tab PO DAILY 04/07 [History] Potassium Chloride [Klor-Con] 20 meq PO DAILY 04/08/15 [History] Spironolactone [Aldactone] 12.5 mg PO DAILY 04/08/15 [History] atorvaSTATin [Lipitor] 20 mg PO BEDTIME 04/08/15 [History] Ascorbic Acid [Vitamin C] 500 mg PO DAILY 06/14/17 [History] Aspirin [Ecotrin] 81 mg PO DAILY 06/14/17 [History] Bisacodyl [Dulcolax] 10 mg RECTAL DAILY PRN 06/14/17 [History] Ferrous Sulfate 325 mg PO DAILY 06/14/17 [History] Loperamide HCl [Imodium A-D] 2 mg PO ASDIRECTED PRN 06/14/17 [History] Megestrol [Megace 40 MG/ML Susp] 800 mg PO DAILY 06/14/17 [History] guaiFENesin [Mucinex] 600 mg PO BID 06/14/17 [History] Fishermans Friend Cough Drop 0.5 tab PO QID PRN 06/15/17 [History] Cephalexin [Keflex] 500 mg PO BID #14 cap 06/16/17 [Rx] Saccharomyces Boulardii [Florastor] 250 mg PO BID #28 cap 06/16/17 [Rx] Patient Handouts: Gastrointestinal Bleeding, [id number], Alzheimer Disease Caregiver Guide, [id number]-[id number], Dementia, [id number], Urinary Tract Infection, Adult, Mibw-nf-Lpuo Referrals: Wayne Javed MD [Primary Care Provider] - 06/26/17 10:30 am (Please follow up with Dr. Javed on Monday, June 26, 2017 at 1030 AM. Please arrive 15 min early for check in. ) - Discharge Summary/Plan Comment DC Time >30 min.: Yes (40) - General Info Date of Service: 06/16/17 Admission Dx/Problem (Free Text: Admission Diagnosis/Problem Admission Diagnosis/Problem GI bleed not requiring more than 4 units of blood in 24 hours, ICU, or surgery Subjective Update: In to see Shahrzad today. She is lying in bed. Overall she is doing quite well. She has been sleeping well. Good appetite. She is unable to communicate whether she has any symptoms but she seems to be comfortable and is able to follow commands. Urinating. No concerns from nursing. She will be DCd back to [facility] today with Keflex 7 days for mild UTI. Functional Status: Reports: Pain Controlled, Tolerating Diet, Urinating, Other ( Unable to obtain due to AMS/Alzheimer's dementia) - Review of Systems General: Reports: No Symptoms HEENT: Reports: No Symptoms Pulmonary: Reports: No Symptoms Cardiovascular: Reports: No Symptoms Gastrointestinal: Reports: No Symptoms Genitourinary: Reports: No Symptoms Musculoskeletal: Reports: No Symptoms Skin: Reports: No Symptoms Neurological: Reports: Confusion Psychiatric: Reports: Confusion - Patient Data Vitals - Most Recent: Last Vital Signs Temp 97.5 F 06/16/17 06:34 Pulse 99 06/16/17 09:59 Resp 18 06/16/17 06:34 BP 135/82 06/16/17 10:00 Pulse Ox 94 L 06/16/17 06:53 Weight - Most Recent: 113 lb I&O - Last 24 hours: Intake & Output 06/15/17 06/16/17 06/16/17 22:59 06:59 14:59 Intake Total 1772 2085 0 Balance 1772 2085 0 Lab Results - Last 24 hrs: Laboratory Results - last 24 hr 06/16/17 06/16/17 06/16/17 Range/Units 06:26 06:26 06:26 WBC 5.23 (3.98-10.04) K/mm3 RBC 3.05 L (3.98-5.22) M/mm3 Hgb 9.9 L (11.2-15.7) gm/L Hct 30.7 L (34.1-44.9) % MCV 100.7 H (79.4-94.8) fl MCH 32.5 H (25.6-32.2) pg MCHC 32.2 (32.2-35.5) g/dl RDW Std Deviation 51.5 H (36.4-46.3) fL Plt Count 178 L (182-369) K/mm3 MPV 9.8 (9.4-12.3) fl Neut % (Auto) 59.4 (34.0-71.1) % Lymph % (Auto) 28.3 (19.3-51.7) % [place] % (Auto) 8.4 (4.7-12.5) % Eos % (Auto) 3.1 (0.7-5.8) Baso % (Auto) 0.4 (0.1-1.2) % Neut # (Auto) 3.11 (1.56-6.13) K/mm3 Lymph # (Auto) 1.48 (1.18-3.74) K/mm3 [place] # (Auto) 0.44 H (0.24-0.36) K/mm3 Eos # (Auto) 0.16 (0.04-0.36) K/mm3 Baso # (Auto) 0.02 (0.01-0.08) K/mm3 Sodium 144 (136-145) mEq/L Potassium 3.9 (3.5-5.1) mEq/L Chloride 111 H (98-107) mEq/L Carbon Dioxide 21 (21-32) mEq/L Anion Gap 15.9 H (5-15) BUN 32 H (7-18) mg/dL Creatinine 1.1 H (0.55-1.02) mg/dL Est Cr Clr Drug Dosing 29.16 mL/min Estimated GFR (MDRD) 47 (>60) mL/min BUN/Creatinine Ratio 29.1 H (14-18) Glucose 80 L (83-115) mg/dL Lactic Acid 1.5 (0.4-2.0) mmol/L Calcium 8.1 L (8.5-10.1) mg/dL Magnesium 1.7 L (1.8-2.4) mg/dl Total Bilirubin 0.6 (0.2-1.0) mg/dL AST 8 L (15-37) U/L ALT 19 (14-59) U/L Alkaline Phosphatase 39 L (46-116) U/L C-Reactive Protein < 0.2 (<1.0) mg/dL Total Protein 5.9 L (6.4-8.2) g/dl Albumin 2.9 L (3.4-5.0) g/dl Globulin 3.0 gm/dL Albumin/Globulin Ratio 1.0 (1-2) MARYJO Results - Last 24 hrs: Microbiology 06/14/17 21:30 Urine Culture - Preliminary Urine, Catheterized Gram Negative Rods Med Orders - Current: Current Medications Acetaminophen (Tylenol) 650 mg PO Q8HR PRN PRN Reason: Pain/Fever Acetaminophen (Tylenol) 650 mg PO TID [facility] Last Admin: 06/16/17 09:55 Dose: 650 mg Allopurinol (Zyloprim) 100 mg PO DAILY [facility] Last Admin: 06/16/17 10:00 Dose: 100 mg Bisacodyl (Dulcolax) 10 mg RECTAL DAILY PRN PRN Reason: Constipation Diltiazem HCl (Cardizem Cd) 120 mg PO DAILY [facility] Last Admin: 06/16/17 09:59 Dose: 120 mg Docusate Sodium (Colace) 100 mg PO BID PRN PRN Reason: Constipation Ferrous Sulfate (Ferrous Sulfate) 325 mg PO DAILY [facility] Last Admin: 06/16/17 10:00 Dose: 325 mg Furosemide (Lasix) 20 mg PO DAILY [facility] Last Admin: 06/16/17 10:00 Dose: 20 mg Sodium Chloride (Normal Saline) 1,000 mls @ 150 mls/hr IV ASDIRECTED [facility] Last Admin: 06/16/17 07:05 Dose: 150 mls/hr Loperamide HCl (Imodium) 2 mg PO ASDIRECTED PRN PRN Reason: Diarrhea Lorazepam (Ativan) 0.5 mg IVPUSH BEDTIME PRN PRN Reason: Insomnia Losartan Potassium (Cozaar) 25 mg PO DAILY [facility] Last Admin: 06/16/17 10:00 Dose: 25 mg Magnesium Hydroxide (Milk Of Magnesia) 30 ml PO Q12H PRN PRN Reason: Constipation Megestrol Acetate (Megace 40 Mg/Ml Susp) 800 mg PO DAILY [facility] Last Admin: 06/16/17 09:53 Dose: 800 mg Metoprolol Tartrate (Lopressor) 5 mg IVPUSH Q6H PRN PRN Reason: Tachycardia Metoprolol Tartrate (Lopressor) 25 mg PO BID [facility] Last Admin: 06/16/17 09:53 Dose: 25 mg Multivitamins (Thera) 1 each PO DAILY [facility] Last Admin: 06/16/17 09:53 Dose: 1 each Pantoprazole Sodium (Protonix Iv) 40 mg IVPUSH Q12H [facility] Last Admin: 06/16/17 09:53 Dose: 40 mg Polyethylene Glycol (Miralax) 17 gm PO DAILY PRN PRN Reason: Constipation Potassium Chloride (Klor-Con M20) 20 meq PO DAILY [facility] Last Admin: 06/16/17 10:01 Dose: 20 meq Senna/Docusate Sodium (Senna Plus) 1 tab PO BID PRN PRN Reason: Constipation Simvastatin (Zocor) 20 mg PO BEDTIME [facility] Last Admin: 06/15/17 20:17 Dose: 20 mg Sodium Chloride (Saline Flush) 10 ml FLUSH ASDIRECTED PRN PRN Reason: Keep Vein Open Last Admin: 06/14/17 21:57 Dose: 10 ml Spironolactone (Aldactone) 12.5 mg PO DAILY [facility] Last Admin: 06/16/17 09:59 Dose: 12.5 mg Discontinued Medications Bisacodyl (Dulcolax) 5 mg PO DAILY PRN PRN Reason: Constipation Sodium Chloride (Normal Saline) 1,000 mls @ 125 mls/hr IV ASDIRECTED [facility] Last Admin: 06/14/17 20:28 Dose: 125 mls/hr Pantoprazole Sodium 80 mg/ (Sodium Chloride) 100 mls @ 10 mls/hr IV Q10H [facility] Last Admin: 06/14/17 21:52 Dose: 10 mls/hr Magnesium Sulfate 2 gm/ Premix 50 mls @ 25 mls/hr IV ONETIME ONE Stop: 06/16/17 10:15 Last Admin: 06/16/17 09:56 Dose: 25 mls/hr Ceftriaxone Sodium 2 gm/ (Dextrose/Water) 100 mls @ 200 mls/hr IV ONETIME ONE Stop: 06/16/17 11:59 Last Admin: 06/16/17 12:35 Dose: 200 mls/hr Magnesium Oxide (Magnesium Oxide) 400 mg PO ONETIME ONE Stop: 06/16/17 09:32 Last Admin: 06/16/17 11:11 Dose: Not Given Pantoprazole Sodium (Protonix Iv) 80 mg IVPUSH .BOLUS ONE Stop: 06/14/17 21:38 Last Admin: 06/14/17 21:50 Dose: 80 mg - Exam Quality Assessment: Reports: DVT Prophylaxis General: Reports: Alert, Cooperative, No Acute Distress. Denies: Oriented ( dementia) HEENT: Reports: Pupils Equal, Pupils Reactive, EOMI, Mucous Membr. Moist/[place] Neck: Reports: Supple Lungs: Reports: Clear to Auscultation, Normal Respiratory Effort Cardiovascular: Reports: Regular Rate, Irregular Rhythm (a fib) GI/Abdominal Exam: Normal Bowel Sounds, Soft, Non-Tender, No Organomegaly, No Distention, No Abnormal Bruit, No Mass, Pelvis Stable (Female) Exam: Deferred Rectal (Female) Exam: Deferred Back Exam: Reports: Normal Inspection, Full Range of Motion Extremities: Normal Inspection, Normal Range of Motion, Non-Tender, No Pedal Edema, Normal Capillary Refill Skin: Reports: Warm, Dry, Intact Neurological: Reports: No New Focal Deficit Psy/Mental Status: Reports: Alert, Normal Affect, Normal Mood, Other (Confused- Alzheimer's dementia)
[2017-06-16 14:38] VITALS: BP 102/73
== END 2017-06-16 14:53 | DRG 378 ==
LOC: JD.ED 19:57 → JD.MS 22:04
PROVIDERS: ADMIT Internal Medicine Cardiovascular Disease; ATTEND Internal Medicine Cardiovascular Disease
DX: K92.2 Gastrointestinal hemorrhage, unspecified (principal); D64.9 Anemia, unspecified; N28.9 Disorder of kidney and ureter, unspecified; I13.0 Hypertensive heart and chronic kidney disease with heart failure and stage 1 through stage 4 chronic kidney disease, or unspecified chronic kidney disease; I48.91 Unspecified atrial fibrillation; N39.0 Urinary tract infection, site not specified; B96.89 Other specified bacterial agents as the cause of diseases classified elsewhere; I11.0 Hypertensive heart disease with heart failure; N18.3 Chronic kidney disease, stage 3 (moderate); H91.90 Unspecified hearing loss, unspecified ear; I25.10 Atherosclerotic heart disease of native coronary artery without angina pectoris; I50.9 Heart failure, unspecified; J44.9 Chronic obstructive pulmonary disease, unspecified; R32 Unspecified urinary incontinence; M10.9 Gout, unspecified; M81.0 Age-related osteoporosis without current pathological fracture; G30.9 Alzheimer's disease, unspecified; F02.80 Dementia in other diseases classified elsewhere, unspecified severity, without behavioral disturbance, psychotic disturbance, mood disturbance, and anxiety; F32.9 Major depressive disorder, single episode, unspecified; I70.90 Unspecified atherosclerosis; R41.82 Altered mental status, unspecified; K92.1 Melena; K59.09 Other constipation; R15.9 Full incontinence of feces; K21.9 Gastro-esophageal reflux disease without esophagitis; R13.10 Dysphagia, unspecified; E53.8 Deficiency of other specified B group vitamins; I48.2 Chronic atrial fibrillation; D64.89 Other specified anemias; Z66 Do not resuscitate; Z85.3 Personal history of malignant neoplasm of breast; Z86.14 Personal history of Methicillin resistant Staphylococcus aureus infection; Z88.8 Allergy status to other drugs, medicaments and biological substances; Z79.82 Long term (current) use of aspirin; Z79.899 Other long term (current) drug therapy; Z87.440 Personal history of urinary (tract) infections
CPT/HCPCS: 36415; 74176; 80053; 81001; 83690; 85025; 86850; 86900; 86901; 87086; 87088; 87186; 96361; 96374; 96376; 99285; C9113 ×2; J7030; J7040; J7050 ×2; 80048; 83605; 83735; 85007; 85027; 85610; 86140; 99284; A9270-GY; J0696; J3475; J7060